=== PATIENT | male | born 1970 | race African-American/Black ===

== ENCOUNTER 2021-01-12 17:36 | Emergency (ER) | payer BC ==
[~2021-01-12] VITALS: Ht 182.9 cm; Wt 90.0 kg
[2021-01-12] MEDS ORDERED: DIAZEPAM 5 MG TABLET PO ONE (18:00)
[2021-01-12] MEDS ORDERED: ONDANSETRON 4MG ODT PO ONE (18:00)
[2021-01-12] MEDS ORDERED: HYDROCODONE/ACETAMINOPHEN 5/325MG TABLET PO ONE (18:00)
[2021-01-12 21:51] VITALS: BP 125/84
== END 2021-01-12 21:52 | disposition home or self-care (01) ==
LOC: ER 17:36
DX: M54.5 Low back pain (principal)
CPT/HCPCS: 72148; 99284; Q0162